=== PATIENT | male | born 1960 | race Caucasian/White ===

== ENCOUNTER 2023-11-22 04:33 | Day surgery (SDC) | payer OTHER, SELFPAY ==
[2023-11-21 23:52] VITALS: BP 112/74
[2023-11-22] VITALS (17 sets, daily range): BP systolic 89–129; BP diastolic 51–74; BMI 33.5; BMI 32.7
[2023-11-22 00:21] LABS: % Basophils 0.7 % (0-2); % Eosinophils 2.2 % (0-6); % Immature Granulocytes 0.7 % (0-0.5); % Lymphocytes 29.3 % (20.5-51.1); % Monocytes 8.4 % (1.7-9.3); % Neutrophils 58.7 % (42.2-75.2); Absolute Basophils 0.1 10^3/uL (0-0.2); Absolute Eosinophils 0.2 10^3/uL (0-0.7); Absolute Immature Granulocytes 0.1 10^3/uL (0-0.05); Absolute Lymphocytes 2.4 10^3/uL (1.2-3.4); Absolute Monocytes 0.7 10^3/uL (0.1-0.6); Absolute Neutrophils 4.7 10^3/uL (1.4-6.5); Hematocrit 42.5 % (39.0-52.0); Hemoglobin 15.3 g/dL (13.0-18.0); Mean Corpuscular Hgb 32.8 pg (27.0-31.0); Mean Corpuscular Volume 91.2 fL (80.0-94.0); Mean Platelet Volume 9.5 fL (7.4-10.4); Nucleated Red Blood Cells % 0 % (-); Platelet Count 173 10^3/uL (130-400); Red Blood Cell Count 4.66 10^6/uL (4.70-6.10); Red Cell Dist. Width 11.9 % (11.5-14.5); White Blood Cell Count 8.1 10^3/uL (4.8-10.8)
[2023-11-22 00:24] LABS: Urine Albumin Trace (Neg - Trace); Urine Bilirubin Negative (Negative); Urine Character Clear (Clear); Urine Color Yellow; Urine Glucose Negative (Negative); Urine Ketone Negative (Negative); Urine Leukocyte Negative (Negative); Urine Nitrite Negative (Negative); Urine Occult Blood Negative (Negative); Urine Specific Gravity 1.025 (<1.030); Urine Urobilinogen Negative (Neg - 1+)
[2023-11-22 00:42] LABS: ALT (SGPT) 51 U/L (0-50); AST (SGOT) 38 U/L (17-59); Albumin 4.5 g/dl (3.5-5.0); Alkaline Phosphatase 59 U/L (38-126); Blood Urea Nitrogen 24 mg/dl (9-20); Calcium 9.5 mg/dl (8.4-10.2); Carbon Dioxide 31 mmol/L (22-30); Chloride 102 mmol/L (98-107); Glucose 115 mg/dl (70-99); Sodium 143 mmol/L (135-145); Total Bilirubin 0.8 mg/dl (0.2-1.3); eGFR > 60.00
--- NOTE | 2023-11-22 02:19 | ED.GENMED ---
History of Present Illness
General
Chief Complaint: Back Pain
Source: patient
Exam Limitations: none
Time Seen by Provider: 11/22/23 02:09
History of Present Illness
History of Present Illness:
This is a 63 year old male that comes in with c/o right sided abd pain. states that 2 months ago he had similar pain but it went away. Tonight he was awakened form sleep and he thought he had to go to the [place]. States that he broke out into a sweat
and had severe right sided abdominal pain. States that he was nauseated and had diarrhea. States that recently he had had dizziness with bending and when he gets back up he is dizzy. States that his PCP is aware. Denies any fever, chills, chest
pain, SOB, vomiting, headache, urinary burning.
Past History
Past History
ED Past Medical History: Hypercholesterolemia
ED Past Surgical History: Other (Inguinal hernia, Varicose veins right leg)
Social History
Tobacco: Non-smoker
Alcohol: Occasional
Drug: None
Personal:
Living: with family
Employment: Employed
Family History
Family History: Other (Noncontributory)
Review of Systems
Review of Systems
All Other Systems: ROS reviewed and negative except as documented in HPI and ROS
Constitutional: Reports no symptoms; Denies fever or chills
EENT: Reports no symptoms
Respiratory: Reports no symptoms; Denies cough or trouble breathing
Cardiac: Reports no symptoms; Denies chest pain
ABD/GI: Reports abdominal pain (Right sided), nausea and diarrhea; Denies vomiting
: Reports no symptoms; Denies dysuria, frequency or urgency
Musculoskeletal: Reports no symptoms
Skin: Reports no symptoms
Neurological: Reports no symptoms; Denies dizzy or headache
Psychiatric: Reports no symptoms
Phy Exam
General Physical Exam
General Presentation: no apparent distress
General age: appears stated age
General Skin: warm and dry
General Habitus: normal
General Mental: alert
General Hydration: appears well hydrated
ENT Exam
ENT Exam: TM's normal, pharynx normal and neck supple
Eye Exam
Eye Exam: EOMI
Cardiovascular Exam
Cardiovascular Exam: regular rate/rhythm, no edema, no murmur and normal peripheral pulses
Pulmonary Exam
Pulmonary Exam: lungs clear, no respiratory distress, no rales, chest non tender, no crackles, no rhonchi, no wheezing and no cough
Gastrointestinal Exam
Gastrointestinal Exam: normal bowel sounds, soft, no organomegaly, no pulsatile mass, non distended and tender (Right mid flank abd tenderness with palpation)
Musculoskeletal Exam
Musculoskeletal Exam: full ROM and no edema
Skin Exam
Skin Exam: normal color, warm/dry, no rash and no petechia
Psychiatric Exam
Psychiatric Exam: normal mood/affect
Course
Orders/Labs/Results
Orders:
Orders
11/21/23 23:55
Complete Blood Count/With Diff Urgent
Comprehensive Metabolic Panel Urgent
Urinalysis Urgent
Date Specimen was Collected: 11/21/23
Time Specimen was Collected: 23:55
11/22/23 02:18
CT Abd/pelvis W Iv Cont Urgent
Comment:
Reason For Exam: Right sided abd pain
0.9% Sodium Chloride 1000 ml [Nss] 1,000 ml IV BOLUS
Ketorolac [Toradol] 30 mg IV NOW STA
Abnormal Lab Results
11/22/23
00:15
RBC 4.66 L 10^6/uL
(4.70-6.10)
MCH 32.8 H pg
(27.0-31.0)
Abs Immat Gran (auto) 0.1 H 10^3/uL
(0-0.05)
Absolute Monos (auto) 0.7 H 10^3/uL
(0.1-0.6)
Immature Gran % 0.7 H %
(0-0.5)
Carbon Dioxide 31 H mmol/L
(22-30)
BUN 24 H mg/dl
(9-20)
Glucose 115 H mg/dl
(70-99)
ALT 51 H U/L
(0-50)
11/22/23 00:15
11/22/23 00:15
dehydration. Glucose nonfasting. Urine negative for infection or blood.
Vital Signs
Initial and Last Documented VS:
Initial Vital Signs
Temp Pulse Resp BP Pulse Ox
98.2 F 60 22 112/74 97
11/21/23 23:52 11/21/23 23:52 11/21/23 23:52 11/21/23 23:52 11/21/23 23:52
Last Documented Vital Signs
Temp Pulse Resp BP Pulse Ox
98.2 F 60 22 102/62 96
11/21/23 23:52 11/21/23 23:52 11/21/23 23:52 11/22/23 04:00 11/22/23 04:00
MDM/Problems Addressed
Differential Diagnosis Includes:
renal calculus, Appendicitis,
MDM/Problems Addressed:
This is a 63 year old male that comes in with c/o right flank pain. States that this woke him from sleep as he thought he had to go to the bathroom. States that he broke out in a sweat. States that he was nauseated and had diarrhea.
Will get labs, urine and CT scan.
Back into see patient. Explained that he has an acute appendicitis. Will admit and given IV antibiotics. Message sent to Dr. Huerta.
Chronic conditions affecting care:
NA
Acute Exacerbation and/or Progression of Chronic Illness:
NA
*Radiology
Radiology exam reviewed: radiology read reviewed (CT night hawk- Acute appendicitis, wit appendix measuring upto 14mm. No evidence of perforation. No bowel obstruction. Normal gallbladder. Incidentals: diverticulosis without evidence of
diverticulitis. No obstructive Uropathy. No hepatic or pancreatic mass. No abdominal aortic aneurysm. ) and other (Ct cont- No acute osseous abnormality. No acute abnormality within the visualized lungs. No acute abnormality within the visualized
soft tissues. )
*Pulse Oximetry
Patient hypoxic: no
*EKG
Interpreted by ED Provider?: NA
Rate: EKG- N/A
*[employer] Accounts Manager Interpretation
Rate: [employer] Accounts Manager- N/A
*Critical Care Note
Total Time (30-74mins, 75-104mins- exclusive of procedures): Not Applicable
ED Attending Note
-
Portions of this chart may have been created with voice recognition software.� Occasional wrong word or��sound alike� substitutions may have occurred due to the inherent limitations of voice recognition software.
Discharge Plan
Departure
Patient Disposition: Admit
Date of Disposition: 11/22/23
Time of Disposition: 04:13
Admit to: Med/Surg
Presentation/result/management discussed w/ accepting MD/DO: Dr Huerta
Patient with high blood pressure during this ER visit?: No
Condition: Good
Discharge Problem:
Acute appendicitis
Prescriptions:
No Action
Atorvastatin
20 mg PO DAILY
Referrals:
Yonas Fernando MD [Family Provider] -
Interventions
Interventions:
*Risk Screen - Suicide Last Done: 11/21/23 23:52
*General Assessment Last Done: 11/22/23 02:30
*Neglect/Abuse Screening Last Done: 11/21/23 23:52
ED- Fall Risk Assessment Last Done: 11/22/23 02:30
*ED COVID-19 Vaccine History Last Done: 11/22/23 02:30
ED-Musculoskeletal Assessment Last Done: 11/22/23 02:33
Discharge Date and Time
Print Language: BENINESE
[2023-11-22] MEDS: TORADOL 30 MG IV (02:26)
[2023-11-22] MEDS: NSS 1000 IV (02:28)
[2023-11-22] MEDS: FLAGYL 500 MG 100 IV ×2 (04:31→12:25)
--- NOTE | 2023-11-22 04:42 | HPS.HSE ---
Addendum entered and electronically signed by Ernst Huerta MD 11/22/23 09:50:
Patient is a 63 yo M with a PMH of HTN, HLD, s/p RLE varicose vein stripping, and s/p open inguinal hernia repair with mesh. Mr. Rothman presents with 24 hours of RLQ abdominal pain. He states that his symptoms awoke him from sleep. Prior to this he
states that he was feeling well. He does note that several weeks ago he had a more mild abdominal discomfort in his LLQ radiating to his RLQ which self resolved. He has also had intermittent episodes of looser and questionable melanotic stools
over the past several weeks. Currently he describes severe RLQ abdominal pain which has persisted prompting presentation to the ED. Associated nausea and vomiting. Associated diaphoresis, but denies any fevers or chills. He has had intermittent
episodes of dizziness which appears to be positional and may be related to his BP control. He denies any chest pain or shortness of breath. Previous colonoscopy approximately 3 years ago without any reported abnormalities. No family history of
IBD or colon cancers.
Gen: NAD
Abd: soft, tender to palpation in RLQ, ND, obese, non-peritoneal, palpable umbilical hernia, soft reducible, fascial defect < [address] scan imaging were reviewed.
Patient is a 63 yo M p/w acute appendicitis
Natural history and pathophysiology of appendicitis was discussed. CT scan imaging as a relates to his appendix was reviewed. Options for management including medical management with antibiotics versus surgical management with appendectomy were
considered and discussed. The pros and cons of both approaches was discussed. Specifically, we discussed failure of medical management and future episodes of appendicitis versus surgical risks. Mr. Maloney would like to proceed with surgical
management.
Plan for a laparoscopic appendectomy and primary umbilical hernia repair. The procedure itself, as well as the risks, benefits, and alternatives was discussed. Specifically, we discussed the risks of bleeding, infection, injury to surrounding
structures (bowel, bladder), staple line leak, need for open procedure. Typical postprocedural recovery was discussed. Of note, we discussed concomitant repair of his umbilical hernia. We discussed that he is at increased risk for recurrence
given the inability to use mesh in an infected field. We also discussed that he will need 4 weeks no heavy lifting or strenuous activities with this repair. Patient acknowledges understanding would like to proceed. All questions answered.
Consent signed.
-- Laparoscopic appendectomy and primary umbilical hernia repair
-- NPO, IVF
-- Antibiotics: Levaquin and Flagyl
-- Pain control: Tylenol and IV Dilaudid as needed
Original Note:
Family Physician
-
Family Physician: Yonas Fernando
Chief Complaint
-
abd pain
History of Present Illness
This is a 63 year old male hx of HTN, HLD that comes in with c/o right sided abd pain that abruptly woke him from sleep. Does states that 2 months ago he had similar pain but it went away. He attributed that to advil use on an empty stomach. Tonight
he was awakened from sleep and he thought he had to go to the [place]. States that he broke out into a sweat and had severe right sided abdominal pain. States that he was nauseated and had diarrhea. He states that recently he has been having dizziness
at work (construction) with bending and when he gets back up he is dizzy. States that his PCP is aware and has an appt 11/30/23. He and think it is low BP from combo of lisinopril and working outside on hot days with job. Has been recently
checking home BP. Denies any fever, chills, chest pain, SOB, vomiting, headache, urinary burning.
ED treatments:
Toradol
nss
levaquin/flagyl
CT abd: confirming acute appendicitis 14mm dilated
Medical History
Past Medical History
Past Medical History: Reports HTN and Hypercholesterolemia
Past Surgical History: Reports Other (varicose vein treatment RLE, Inguinal hernia repair right 50 yrs ago )
Social History
Tobacco: Non-smoker
Alcohol: Other (weekends)
Drug: None
Personal:
Living: With Family
Employment: Employed (construction)
Family History
Family History: Not pertinent
Allergies / Home Medications
Allergies reflects when Allergies were last updated in [facility].
Home Medications with original date entered in [facility]
Allergy/Medication List:
Allergies
Allergy/AdvReac Type Severity Reaction Status Date / Time
Penicillins Allergy Unknown Verified 11/21/23 23:54
Home Medications
Atorvastatin 20 mg PO DAILY
lisinopril 20 mg PO DAILY 11/22/23
Review of Systems
-
History Source: Patient
A 12 point ROS was completed and negative except as noted: Yes
Constitutional: Reports No Symptoms
EENT: Reports No Symptoms
Respiratory: Reports No Symptoms
Cardiac: Reports No Symptoms
Abdomen/GI: Reports Abdominal Pain, Nausea and Other (abd bloat)
: Reports No Symptoms
Musculoskeletal: Reports No Symptoms
Skin: Reports No Symptoms
Neurological: Reports No Symptoms
Endocrine: Reports No Symptoms
Hematologic/Lymphatic: Reports No Symptoms
Psych: Reports No Symptoms
Physical Exam
Vital Signs
Vital Signs
Temp Pulse Resp BP Pulse Ox
98.2 F 60 22 102/62 97
11/21/23 23:52 11/21/23 23:52 11/21/23 23:52 11/22/23 04:00 11/22/23 04:30
Physical Exam
General: Well Developed, Well Nourished, No Apparent Distress and Pain (04/06 now after toradol (from 01/04))
HEENT: NormoCephalic, Moist mucous membranes and Atraumatic
Respiratory: Clear and Non Labored Respirations
Cardiac: S1/S2 and Regular Rhythm
Breast: Deferred by me
GI: Soft, Normal Bowel Sounds, Tender (RLQ) and Distended (mild)
Rectal: Deferred by Provider
Genito-urinary: Deferred by me
Musculoskeletal: No Clubbing and No Cyanosis
Skin: Warm
Neuro: Awake, Alert, Oriented, AO x 3 and No Motor Deficits
Hematologic/Lymphatic: No Lymphadenopathy
Psych: Calm
Laboratory Results
-
11/22/23 00:15
11/22/23 00:15
Laboratory Results
Total Bilirubin 0.8 mg/dl (0.2-1.3) 11/22/23 00:15
AST 38 U/L (17-59) 11/22/23 00:15
ALT 51 U/L (0-50) H 11/22/23 00:15
Alkaline Phosphatase 59 U/L (38-126) 11/22/23 00:15
Data Reviewed
-
CT Scan: Report Reviewed by me and Discussed with Physician
Lab Data: Discussed with Physician
Impression/Plan
-
IMPRESSION:
63 yo male with hx HTN and HLD presents to ED with sudden abd pain awaking him from sleep. CT abd confirms acute appendicitis without perforation.
PLAN:
Admit to service of Dr Huerta
med surg obs
#acute appendicitis
-NPO x meds
-IVF: normosol @125
-cont levaquin and flagyl
-zofran prn
-pain control: tylenol, toradol, dilaudid
#HTN
-BP on softer side in ED (sbp 102)
-hold lisinopril for now
#HLD
-ALT 51
-hold for now.
-CMP in am if pt still inpt
full code
DVT proph: scd as pt going to OR today
[2023-11-22] MEDS: LEVAQUIN 100 IV (05:50)
--- NOTE | 2023-11-22 06:37 | PTCARENOTE ---
Pt arrived at 0550. Pt arrived via stretcher from ED. Pt was able to ambulate to bed. VSS. AAOX3. pt complains of no pain. Bed in lowest position and locked. call starks with in reach.
[2023-11-22] MEDS: NORMOSOL-R/PLASMALYTE-A 1000 IV (08:23)
--- NOTE | 2023-11-22 09:50 | W.SUR.PREOP ---
Pre-Operative Surgical Note
-
I have examined this patient prior to the performance of the scheduled procedure.
The patient's condition is unchanged from the time of the current History and
Physical and the patient is able to undergo the scheduled procedure.
--- NOTE | 2023-11-22 11:41 | W.IMMPOSTOP ---
Surgical Immed Post Op Note
-
Primary Surgeon: Bradley
Assisting Surgeon: Nhung
Pre-op Diagnosis: Acute appendicitis
Post-op Diagnosis: Acute appendicitis
Procedure Performed: Laparoscopic appendectomy and open primary umbilical hernia repair
Anesthesia Type: General
Specimen / Cultures:
1. Appendix
Estimated Blood Loss: 7 cc
Complications: None
Operative Findings:
1. Acutely inflamed tip appendicitis with mild localized purulence, no serge perforation, retrocecal and blocked by TI (additional 5 mm port placed for retraction of sale of Treves)
2. Mesentery and attachments taken with [employer] device, base with william load stapler
3. Umbilical fascial defect 1 cm, primary closure with 0 PDS figure-of eight
Plan:
-- Abx 4 days post-op
-- Routine care otherwise
--- NOTE | 2023-11-22 13:42 | CM ---
Reviewed the chart notes and spoke with the patient and his spouse at the bedside. Patient resides with spouse in a two story home with one step to enter. The patient reports no DME/VN/SNF in the past. The patient confirmed his pharmacy of choice
is the [facility]. The patient anticipates being discharged to home possibly tonight. Spouse will provide transportation. CM continues to be available to patient/family and is monitoring medical plan for needs at discharge.
Plan: Discharge to home when medically stable. No anticipated needs identified at this time.
--- NOTE | 2023-11-22 14:32 | PTCARENOTE ---
Patient returned from [facility] post laparoscopic appendectomy.The patient denies any pain.There is one lap site with a gauze dressing with Tregaderm which is dry and intact.All other incisions are open to air with glue without drainage.Vital signs are
stable.The patient is in his bed with his at the bedside.The call starks is in reach.
== END 2023-11-22 17:08 | disposition home or self-care (01) ==
LOC: SDS 04:33
PROVIDERS: ATTENDING PHYSICIAN Surgery; EMERGENCY PHYSICIAN Emergency Medicine; FAMILY PHYSICIAN Family Medicine
DX: K38.2 Diverticulum of appendix (principal); K42.9 Umbilical hernia without obstruction or gangrene
CPT/HCPCS: 44970; 88304; 74177; 80053; 81003; 85025; 88341; 88342; 96361; 96374; 99285; C1776; Q9967